=== PATIENT | female | born 1930 | race Caucasian/White ===

== ENCOUNTER 2016-09-11 13:10 | Emergency (ER) | payer OTHER ==
[~2016-09-11 13:10] MED LIST: ASPEC81 PO; ATOR-26 PO; CALC600T9 PO; CLOP1TAB54 PO; ERYTOIN OPL; FELO5TAB PO; I CAPS PO; LEVO112T2 PO; LEVO112T4 PO; LPR25 PO; MAGN400T27 PO; NITR0.4S SL; OLME40TA30 PO; OMEG10007 PO; PRLSR20 PO; RSTOPS OPB; SERT25TA PO; TYLOTC500 PO; mirtazapine PO
[2016-09-11 13:18] VITALS: TEMP 36.7; Ht 154.9 cm
[2016-09-11 13:54] VITALS: O2SAT 97
[2016-09-11] MEDS ORDERED: OLME40TA30 PO (14:00)
[2016-09-11] MEDS ORDERED: ASPI81TA28 PO (14:09)
[2016-09-11 14:16] LABS: BASO % 1.6 %; BASO ABS # 0.09 K/uL (0-0.2); COMPLETE YES; EOS % 1.4 %; LYMPH % 31.4 %; MEAN CELL VOLUME 88.6 fL (80-100); MEAN CORPUSCULAR HEMOGLOBIN 30.2 pg (25-34); MEAN CORPUSCULAR HGB CONC 34.1 g/dl (32-36); MEAN PLATELET VOLUME 9.3 fL (7.4-10.4); MONO % 8.9 %; NEUT % 56.7 %; PLATELET COUNT 214 K/uL (130-400); WHITE BLOOD COUNT 5.74 K/uL (4.8-10.8)
[2016-09-11] MEDS ORDERED: CYCL0.052 OP (14:22)
[2016-09-11] MEDS ORDERED: MAGN400T6 PO ×2 (14:23)
[2016-09-11] MEDS ORDERED: NTRGSL/4 SL (14:25)
[2016-09-11 14:26] LABS: INR 1.1 (0.9-1.1); PARTIAL THROMBOPLASTIN RATIO 1.1; PROTHROMBIN TIME (PATIENT) 11.4 SECONDS (9.0-12.0)
[2016-09-11 14:27] LABS: ALT/SGPT 31 U/L (12-78); AST/SGOT 36 U/L (15-37); BLOOD UREA NITROGEN 14 mg/dl (7-18); BUN/CREATININE RATIO 14.3 (10-20); CALCIUM 9.7 mg/dl (8.5-10.1); CHLORIDE 100 mmol/L (98-107); CREATININE 0.97 mg/dl (0.60-1.20); GLUCOSE 102 mg/dl (70-99); POTASSIUM 4.1 mmol/L (3.5-5.1); SODIUM 136 mmol/L (136-145)
[2016-09-11 14:34] LABS: URINE APPEARANCE CLEAR (CLEAR); URINE BILIRUBIN NEG (NEG); URINE COLOR DK YELLOW; URINE NITRITE NEG (NEG); URINE SPECIFIC GRAVITY 1.008 (1.000-1.030); UROBILINOGEN NEG (NEG)
[2016-09-11 14:36] LABS: ALKALINE PHOSPHATASE 88 U/L (45-117); CARBON DIOXIDE 21 mmol/L (21-32)
[2016-09-11 14:39] LABS: MANUAL MICROSCOPIC REQUIRED? NO; REVIEW REQ? NO
--- NOTE | 2016-09-11 14:48 | DIAGNOSTIC IMAGING REPORT ---
CT SCAN OF THE BRAIN WITHOUT IV CONTRAST CLINICAL HISTORY: Hypertension. COMPARISON STUDY: CT of the brain dated 08/29/2012. TECHNIQUE: Unenhanced axial CT scan of the brain is performed from the vertex to the skull base. CT DOSE: 537.48 mGy.cm FINDINGS: Brain parenchyma: There are age-related involutional changes noting [id number] patchy subcortical and periventricular microangiopathic change. There is no hemorrhage, mass effect, or evidence of acute territorial ischemia by CT criteria. Salgado-white matter is preserved. No extra-axial fluid collection is seen. Ventricles, sulci, cisterns: Prominent secondary to involutional change. Intracranial vasculature: There is atherosclerotic calcification of the cavernous carotid and vertebral arteries. Calvarium: Unremarkable. Sinuses and mastoids: The visualized paranasal sinuses are clear. There is a trace left mastoid effusion. The right mastoid air cells are well pneumatized. Orbits: The bony orbits are grossly intact. There are bilateral ocular lens implants. IMPRESSION: There is no hemorrhage, mass effect, or evidence of acute territorial ischemia by CT criteria. Electronically signed by: Maximilian Whitehead M.D. 09/11/2016 2:47 PM Dictated Date/Time: 09/11/2016 2:45 PM
--- NOTE | 2016-09-11 15:03 | DIAGNOSTIC IMAGING REPORT ---
CHEST 2 VIEWS ROUTINE CLINICAL HISTORY: eval for pnea dyspnea. Chest pain. COMPARISON STUDY: 08/22/2013 FINDINGS: Oval density medial aspect left lung base. Considerations include focal infiltrate, atelectasis, hiatal hernia, versus nodular pathology. Mild stable cardiomegaly post median sternotomy. Lungs otherwise are clear. Mild chronic elevation right hemidiaphragm. IMPRESSION: Oval density medial left base. Differential as discussed above. CT of the chest is suggested as follow-up Electronically signed by: Miguel Arnold M.D. 09/11/2016 3:02 PM Dictated Date/Time: 09/11/2016 3:00 PM
[2016-09-11] MEDS ORDERED: LABETALOL HCL IV 5 MG/ML 20ML IV STA (15:27)
[2016-09-11] MEDS ORDERED: ACETAMINOPHEN 325 MG TAB PO STA (15:27)
--- NOTE | 2016-09-11 16:51 | DIAGNOSTIC IMAGING REPORT ---
CT OF THE CHEST WITHOUT IV CONTRAST CLINICAL HISTORY: Atypical chest pain and shortness of breath. Abnormal chest x-ray with possible mass. COMPARISON STUDY: Chest x-ray dated 09/11/2016 CT DOSE: 284.28 mGy.cm TECHNIQUE: CT of the thorax was performed from the thoracic inlet to the lung bases. Images are reviewed in the axial, sagittal, and coronal planes. IV contrast was not administered for this examination. FINDINGS: Thyroid: Imaged portions of the thyroid gland are normal in appearance. Thoracic aorta: The thoracic aorta is normal in course and caliber, noting standard 3 vessel arch anatomy. Heart: The heart is enlarged with pulmonary artery calcifications. Lungs and pleural spaces: There are minor dependent atelectatic changes. There is scattered calcified granulomas present. There is no focal pulmonary consolidation. The ovoid opacity described in the left medial lung base in the chest x-ray performed the same day, is secondary to a hiatal hernia. Mediastinum: There are calcified mediastinal lymph nodes, likely postinflammatory. Rachana: There is no evidence of pathologic hilar adenopathy given the limitations of a noncontrast study Axilla: Clear. Upper abdomen: Partially visualized upper abdominal viscera is within normal limits. Skeletal structures: There are postsurgical changes of a midline sternotomy. IMPRESSION: 1. Old granulomatous disease 2. Cardiomegaly and coronary artery calcifications 3. No evidence of focal pulmonary consolidation 4. The ovoid opacity at the left medial lung base described on a chest x-ray performed the same day, is secondary to a hiatal hernia Electronically signed by: Yves Merchant M.D. 09/11/2016 4:50 PM Dictated Date/Time: 09/11/2016 4:46 PM
--- NOTE | 2016-09-11 17:25 | DIAGNOSTIC IMAGING REPORT ---
ULTRASOUND OF THE CAROTID ARTERIES CLINICAL HISTORY: Atherosclerotic disease, hypertension. Suspected carotid stenosis. History of syncope. COMPARISON STUDY: 08/30/2012 TECHNIQUE: Real-time, grayscale, and color Doppler sonography of the carotid arteries was performed. Imaging reviewed in the transverse and longitudinal planes. NASCET criteria was utilized for stenosis calcification. FINDINGS: There is mild echogenic atherosclerotic plaque present bilaterally. The peak systolic velocity within the right internal carotid artery is 68 cm/sec. The systolic velocity ratio of right internal to common carotid artery is 0.7. The peak systolic velocity within the left internal carotid artery is 60 cm/sec. The systolic velocity ratio left internal to common carotid artery is . Antegrade flow is seen in the vertebral arteries. The external carotid arteries are patent. IMPRESSION: No evidence of hemodynamically significant carotid stenosis. Electronically signed by: Yves Merchant M.D. 09/11/2016 5:24 PM Dictated Date/Time: 09/11/2016 5:22 PM
[2016-09-11 19:00] VITALS: BP 152/70; PULSE 63; O2SAT 94
--- NOTE | 2016-09-11 20:55 | EMERGENCY ROOM VISIT NOTE ---
History Report prepared by Roman: Marline Crystal Under the Supervision of: Dr. aMtti Rey M.D. First contact with patient: 13:52 Chief Complaint: HYPERTENSION Stated Complaint: ELEVATED BP History of Present Illness The patient is a 86 year old female who presents to the Emergency Room with complaints of persistent hypertension that began about a week ago. Per patient' s daughters, the patient has a history of hypertension but her blood pressure has been abnormally high recently. Her systolic has ranged between 146 and 243 systolically. Her blood pressure was 196/100 in the emergency room today. Her daughters deny any recent medication changes. The patient was seen at her PCP's office 5 days ago and was diagnosed with a UTI and put on Macrobid. Her daughters note that she has an extensive history of UTIs and Macrobid does not typically work for her. When she does get UTIs she is typically symptomatic, but she was not symptomatic last week when she was diagnosed. Her blood pressure issue was addressed at the visit however the provider who saw the patient was concerned that the machine at home was not calibrated. Her daughter states that she is still concerned because her blood pressures have been trending up, regardless of if the machine was calibrated. Her systolic pressure was 164 in the office. The patient notes that she has been feeling lightheaded and weak over the past week or so. She recalls two episodes where she almost passed out - one episode 5 days ago and one episode this morning. She was standing when she almost passed out 5 days ago. The patient also complains of a headache across her forehead over the past week, which has been constant. The headache was not sudden in onset or like a thunderclap. Currently, she is feeling tired. Her legs are typically swollen but they seem a little harder today. Denies loss of consciousness, fever, chest pain, abdominal pain, vomiting , unilateral numbness or weakness, urinary symptoms, or other complaints. Source of History: patient, family (daughters) Onset: a week ago Position: other (global - hypertension) Symptom Intensity: systolic reaching up to 243 Timing: other (persistent) Associated Symptoms: + SOB, + fatigue, + headache, + weakness, No LOC, No abdominal pain, No chest pain, No fevers, No urinary symptoms, No vomiting Note: Other symptoms: lightheadedness Denies unilateral weakness or numbness Review of Systems See HPI for pertinent positives & negatives. A total of 10 systems reviewed and were otherwise negative. Past Medical & Surgical Medical Problems: (1) History of CABG x2 (2) History of depression (3) History of high cholesterol (4) History of hypertension (5) History of hypothyroidism (6) History of syncope Family History No pertinent family history stated. Social History Smoking Status: Never Smoker Alcohol Use: none Drug Use: none Marital Status: Occupation Status: retired Current/Historical Medications Scheduled Acetaminophen (Tylenol), 1,000 MG PO PRN/UD Aspirin (Aspirin Ec), 81 MG PO DAILY Atorvastatin (Lipitor), 80 MG PO QPM Calcium Carbonate-Vitamin D (Calcium + D), 1 TABLET PO DAILY Clopidogrel Bisulfate (Plavix), 75 MG PO DAILY Cyclosporine (Ophth) (Restasis), 1 DROP OP BID Felodipine (Plendil), 2.5 MG PO QPM Fish Oil ([place]-3), 1,000 MG PO DAILY Levothyroxine Sodium (Synthroid), 112 MCG PO DAILY Magnesium Oxide (Mag-Ox), 400 MG PO QAM Magnesium Oxide (Mag-Ox), 800 MG PO QPM Metoprolol Tartrate (Lopressor), 25 MG PO BID Nitroglycerin (Nitrostat), 0.4 MG SL UD Olmesartan/Hctz (Benicar Hct 40/12.5), 1 TAB PO DAILY Omeprazole (Prilosec), 20 MG PO DAILY Sertraline Hcl (Zoloft), 25 MG PO QPM [I Caps], 1 TABLET PO QAM [mirtazapine], 7.5 MG PO QPM Allergies Coded Allergies: Hydromorphone (Unverified Allergy, Severe, PASSES OUT, 09/11/16) Tramadol (Unverified Allergy, Severe, PASSES OUT, 09/11/16) Ciprofloxacin (Verified Allergy, Intermediate, SYNCOPE, 09/11/16) Ampicillin (Verified Allergy, Mild, RASH, 09/11/16) Iodinated Contrast Media (Verified Allergy, Mild, ITCHING MANY YEARS AGO, 09/11/16) Sulfa Drugs (Verified Allergy, Mild, RASH, 09/11/16) PAULA Inhibitors (Verified Allergy, Unknown, UNKNOWN, 09/11/16) Benazepril (Verified Allergy, Unknown, UNKNOWN, 09/11/16) Meperidine (Verified Adverse Reaction, Unknown, FAINTED, 09/11/16) PO MED ONLY Oxycodone (Verified Adverse Reaction, Unknown, FAINTED, 09/11/16) Physical Exam Vital Signs Date Time Temp Pulse Resp B/P Pulse Ox O2 Delivery O2 Flow Rate FiO2 09/11/16 19:00 63 15 152/70 94 Room Air 09/11/16 17:54 64 09/11/16 17:50 69 19 176/82 09/11/16 16:14 64 141/74 09/11/16 15:05 66 166/86 70 186/90 69 197/103 09/11/16 13:54 97 Room Air 09/11/16 13:54 63 196/100 09/11/16 13:52 69 09/11/16 13:18 36.7 99 18 198/102 97 Room Air Physical Exam Constitutional: Vital signs reviewed. Eyes: Pupils are equal round reactive to light. Conjunctiva are noninjected. ENT: Pharynx is clear without erythema or exudate. Mucous membranes are moist. Neck supple without meningeal signs. Respiratory: Clear to auscultation bilaterally. Breath sounds are equal bilaterally. Cardiovascular: Regular rate and rhythm. No rubs or gallops. GI: Soft, nondistended and nontender. Bowel sounds are present. Musculoskeletal: No peripheral edema. No lower extremity tenderness. Integumentary: No cyanosis. Neurological: The patient is awake and alert. Cranial nerves II-XII are intact. Motor is 5 out of 5 all extremities. Sensation is intact to light touch all extremities. Normal speech. No pronator drift. Psychiatric: Normal affect. Medical Decision & Procedures ER Provider Diagnostic Interpretation: X-ray results as stated below per interpretation by me and the radiologist. Other radiology results as stated below per my review and the radiologist's interpretation: CT SCAN OF THE BRAIN WITHOUT IV CONTRAST CLINICAL HISTORY: Hypertension. COMPARISON STUDY: CT of the brain dated 08/29/2012. TECHNIQUE: Unenhanced axial CT scan of the brain is performed from the vertex to the skull base. CT DOSE: 537.48 mGy.cm FINDINGS: Brain parenchyma: There are age-related involutional changes noting [id number] patchy subcortical and periventricular microangiopathic change. There is no hemorrhage, mass effect, or evidence of acute territorial ischemia by CT criteria. Salgado-white matter is preserved. No extra-axial fluid collection is seen. Ventricles, sulci, cisterns: Prominent secondary to involutional change. Intracranial vasculature: There is atherosclerotic calcification of the cavernous carotid and vertebral arteries. Calvarium: Unremarkable. Sinuses and mastoids: The visualized paranasal sinuses are clear. There is a trace left mastoid effusion. The right mastoid air cells are well pneumatized. Orbits: The bony orbits are grossly intact. There are bilateral ocular lens implants. IMPRESSION: There is no hemorrhage, mass effect, or evidence of acute territorial ischemia by CT criteria. Electronically signed by: Maximilian Whitehead M.D. 09/11/2016 2:47 PM Dictated Date/Time: 09/11/2016 2:45 PM CHEST 2 VIEWS ROUTINE CLINICAL HISTORY: eval for pnea dyspnea. Chest pain. COMPARISON STUDY: 08/22/2013 FINDINGS: Oval density medial aspect left lung base. Considerations include focal infiltrate, atelectasis, hiatal hernia, versus nodular pathology. Mild stable cardiomegaly post median sternotomy. Lungs otherwise are clear. Mild chronic elevation right hemidiaphragm. IMPRESSION: Oval density medial left base. Differential as discussed above. CT of the chest is suggested as follow-up Electronically signed by: Miguel Arnold M.D. 09/11/2016 3:02 PM Dictated Date/Time: 09/11/2016 3:[address] OF THE CHEST WITHOUT IV CONTRAST CLINICAL HISTORY: Atypical chest pain and shortness of breath. Abnormal chest x-ray with possible mass. COMPARISON STUDY: Chest x-ray dated 09/11/2016 CT DOSE: 284.28 mGy.cm TECHNIQUE: CT of the thorax was performed from the thoracic inlet to the lung bases. Images are reviewed in the axial, sagittal, and coronal planes. IV contrast was not administered for this examination. FINDINGS: Thyroid: Imaged portions of the thyroid gland are normal in appearance. Thoracic aorta: The thoracic aorta is normal in course and caliber, noting standard 3 vessel arch anatomy. Heart: The heart is enlarged with pulmonary artery calcifications. Lungs and pleural spaces: There are minor dependent atelectatic changes. There is scattered calcified granulomas present. There is no focal pulmonary consolidation. The ovoid opacity described in the left medial lung base in the chest x-ray performed the same day, is secondary to a hiatal hernia. Mediastinum: There are calcified mediastinal lymph nodes, likely postinflammatory. Rachana: There is no evidence of pathologic hilar adenopathy given the limitations of a noncontrast study Axilla: Clear. Upper abdomen: Partially visualized upper abdominal viscera is within normal limits. Skeletal structures: There are postsurgical changes of a midline sternotomy. IMPRESSION: 1. Old granulomatous disease 2. Cardiomegaly and coronary artery calcifications 3. No evidence of focal pulmonary consolidation 4. The ovoid opacity at the left medial lung base described on a chest x-ray performed the same day, is secondary to a hiatal hernia Electronically signed by: Yves Merchant M.D. 09/11/2016 4:50 PM Dictated Date/Time: 09/11/2016 4:46 PM ULTRASOUND OF THE CAROTID ARTERIES CLINICAL HISTORY: Atherosclerotic disease, hypertension. Suspected carotid stenosis. History of syncope. COMPARISON STUDY: 08/30/2012 TECHNIQUE: Real-time, grayscale, and color Doppler sonography of the carotid arteries was performed. Imaging reviewed in the transverse and longitudinal planes. NASCET criteria was utilized for stenosis calcification. FINDINGS: There is mild echogenic atherosclerotic plaque present bilaterally. The peak systolic velocity within the right internal carotid artery is 68 cm/sec. The systolic velocity ratio of right internal to common carotid artery is 0.7. The peak systolic velocity within the left internal carotid artery is 60 cm/sec. The systolic velocity ratio left internal to common carotid artery is . Antegrade flow is seen in the vertebral arteries. The external carotid arteries are patent. IMPRESSION: No evidence of hemodynamically significant carotid stenosis. Electronically signed by: Yves Merchant M.D. 09/11/2016 5:24 PM Dictated Date/Time: 09/11/2016 5:22 PM Laboratory Results 09/11/16 13:50 Red Blood Count 4.40, Mean Corpuscular Volume 88.6, Mean Corpuscular Hemoglobin 30.2, Mean Corpuscular Hemoglobin Concent 34.1, Mean Platelet Volume 9.3, Neutrophils (%) (Auto) 56.7, Lymphocytes (%) (Auto) 31.4, Monocytes (%) (Auto) 8.9, Eosinophils (%) (Auto) 1.4, Basophils (%) (Auto) 1.6, Neutrophils # (Auto) 3.26, Lymphocytes # (Auto) 1.80, Monocytes # (Auto) 0.51, Eosinophils # (Auto) 0.08, Basophils # (Auto) 0.09 09/11/16 13:50 Test 09/11/16 13:50 09/11/16 13:53 White Blood Count 5.74 K/uL (4.8-10.8) Red Blood Count 4.40 M/uL (4.2-5.4) Hemoglobin 13.3 g/dL (12.0-16.0) Hematocrit 39.0 % (37-47) Mean Corpuscular Volume 88.6 fL (80-100) Mean Corpuscular Hemoglobin 30.2 pg (25-34) Mean Corpuscular Hemoglobin Concent 34.1 g/dl (32-36) Platelet Count 214 K/uL (130-400) Mean Platelet Volume 9.3 fL (7.4-10.4) Neutrophils (%) (Auto) 56.7 % Lymphocytes (%) (Auto) 31.4 % Monocytes (%) (Auto) 8.9 % Eosinophils (%) (Auto) 1.4 % Basophils (%) (Auto) 1.6 % Neutrophils # (Auto) 3.26 K/uL (1.4-6.5) Lymphocytes # (Auto) 1.80 K/uL (1.2-3.4) Monocytes # (Auto) 0.51 K/uL (0.11-0.59) Eosinophils # (Auto) 0.08 K/uL (0-0.5) Basophils # (Auto) 0.09 K/uL (0-0.2) RDW Standard Deviation 45.7 fL (36.4-46.3) RDW Coefficient of Variation 13.9 % (11.5-14.5) Immature Granulocyte % (Auto) 0.0 % Immature Granulocyte # (Auto) 0.00 K/uL (0.00-0.02) Prothrombin Time 11.4 SECONDS (9.0-12.0) Prothromb Time International Ratio 1.1 (0.9-1.1) Activated Partial Thromboplast Time 27.4 SECONDS (21.0-31.0) Partial Thromboplastin Ratio 1.1 Anion Gap 15.0 mmol/L (3-11) Estimated GFR () 61.7 Estimated GFR (Non- 53.3 BUN/Creatinine Ratio 14.3 (10-20) Calcium Level 9.7 mg/dl (8.5-10.1) Total Bilirubin 0.7 mg/dl (0.2-1) Direct Bilirubin 0.2 mg/dl (0-0.2) Aspartate Amino Transf (AST/SGOT) 36 U/L (15-37) Alanine Aminotransferase (ALT/SGPT) 31 U/L (12-78) Alkaline Phosphatase 88 U/L (45-117) Troponin I < 0.015 ng/ml (0-0.045) Pro-B-Type Natriuretic Peptide 914 pg/ml (0-1800) Total Protein 8.8 gm/dl (6.4-8.2) Albumin 3.9 gm/dl (3.4-5.0) Thyroid Stimulating Hormone (TSH) 2.390 uIu/ml (0.300-4.500) Free Thyroxine 1.53 ng/dl (0.80-1.60) Urine Color DK YELLOW Urine Appearance CLEAR (CLEAR) Urine pH 8.0 (4.5-7.5) Urine Specific [place] 1.008 (1.000-1.030) Urine Protein NEG (NEG) Urine Glucose (UA) NEG (NEG) Urine Ketones NEG (NEG) Urine Occult Blood NEG (NEG) Urine Nitrite NEG (NEG) Urine Bilirubin NEG (NEG) Urine Urobilinogen NEG (NEG) Urine Leukocyte Esterase NEG (NEG) Laboratory results as reviewed by me. Medications Administered Medications (Trade) Dose Ordered Sig/Steve Route Start Time Stop Time Status Last Admin Dose Admin Acetaminophen (Tylenol Tab) 650 mg NOW STAT PO 09/11/16 15:27 09/11/16 15:30 DC 09/11/16 16:14 650 MG Labetalol HCl (Normodyne IV) 10 mg NOW STAT IV 09/11/16 15:27 09/11/16 15:30 DC 09/11/16 16:11 10 MG ECG Indication: other (hypertension) Rate (beats per minute): 66 Rhythm: normal sinus Findings: RBBB, no ectopy Comparison ECG Date: 08/22/2013 Change: no significant change ED Course 1355: The patient was evaluated in room B7. A complete history and physical exam was performed. 1525: I reassessed the patient. She is still hypertensive and complains of a bad headache. 1527: Ordered Labetalol HCl 10 mg IV, Tylenol Tab 650 mg PO. 1736: The patient is not back from ultrasound but I talked to her daughters about test results. 1750: I reassessed the patient. She wants to go home. Her blood pressure was 176 /82. She will follow up closely with her doctor. The patient will be discharged home. Medical Decision This is an 86-year-old female who presents with elevated blood pressure, lightheadedness and headache. Differential diagnosis includes poorly controlled hypertension, intracranial hemorrhage, intracranial mass, metabolic derangement, carotid stenosis, infection. I did perform a limited focused review of portions of the patient's old chart on the electronic medical record. The patient has had no recent pertinent visits to this hospital. I did evaluate the patient as noted above. The patient has been having elevated blood pressures and headache for approximately one to one and a half weeks. She is neurologically intact at this time. Her blood pressure is elevated. IV access was established. The patient was placed on a continuous cardiac exercise physiologist. I did treat patient with Tylenol. She was also given labetalol IV. I did order and personally review the patient's 12-lead EKG and chest x-ray as described above. Chest x-ray was concerning for a possible mass. I did order and review the patient's blood work as noted in the electronic medical record. Blood work is unremarkable. Urinalysis did not show any signs of infection. I did order a CT of the chest and head. I did review the images myself as well as the radiology report as described above. CT of the head was unremarkable. Her chest CT demonstrated that the potential mass was actually a hiatal hernia. I did order a carotid ultrasound because of her near syncope. This was negative. I did reassess the patient. Her blood pressures improved. She is feeling better. I did discuss the test results with the patient and her family. She does wish to go home. I did recommend she follow closely with her doctor for further evaluation and recheck of her blood pressure. She was given return instructions as outlined below and discharged in good condition. Impression Primary Impression: Poorly-controlled hypertension Additional Impressions: Headache Near syncope Scribe Attestation The scribe's documentation has been prepared under my direct and personally reviewed by me in its entirety. I confirm that the note above accurately reflects all work, treatment, procedures, and medical decision making performed by me. Departure Information Dispostion Home / Self-Care Referrals No Doctor, Assigned (PCP) Luda Mcfarland Patient Instructions ED Near Syncope Unkn, Headache Pain, My [facility] Additional Instructions You have been examined and treated today on an emergency basis only. This is not a substitute for, or an effort to provide, complete comprehensive medical care. It is impossible to recognize and treat all injuries or illnesses in a single emergency department visit. It is therefore important that you follow up closely with your physician within 24-48 hours. Call as soon as possible for an appointment. Return for worsening symptoms or if you develop fever, vomiting , numbness or weakness on one side of your body, trouble with your speech or gait, trouble with vision, chest pain, shortness of breath or any other concerning symptoms. Problem Qualifiers Additional Impressions: Headache Headache type: unspecified Headache chronicity pattern: acute headache Intractability: not intractable Qualified Codes: R51 - Headache
== END 2016-09-11 18:55 | disposition home or self-care (01) ==
LOC: C.EDB 13:12
DX: I10 Essential (primary) hypertension (principal); R55 Syncope and collapse; E03.9 Hypothyroidism, unspecified; E78.00 Pure hypercholesterolemia, unspecified; Z95.1 Presence of aortocoronary bypass graft; I25.10 Atherosclerotic heart disease of native coronary artery without angina pectoris; F32.9 Major depressive disorder, single episode, unspecified; Z79.82 Long term (current) use of aspirin; I51.7 Cardiomegaly